=== PATIENT | female | born 1985 | race Caucasian/White ===

== ENCOUNTER 2016-05-04 05:22 | Emergency (ER) | payer OTHER ==
[~2016-05-04] VITALS: Ht 165.1 cm; Wt 101.2 kg
[~2016-05-04 05:22] MED LIST: ALPRAZOLAM1 M1; AMBIEN5 MG PO; BACTRIM; CELEXA; MOTRIN800 MG PO; PROMETHAZINE D118 M1 PO; PROZAC10 M1 PO; RISPERDAL0.25 MG PO; RISPERIDONE3 M1; ULTRAM50 MG PO; VENLAFAXINE H37.5 M3 PO; VENLAFAXINE HY150 MG; WELLBUTRIN; XANAX1 MG PO; ZOLPIDEM TARTRA10 M1
[2016-05-04 05:27] VITALS: BP 120/79
--- NOTE | 2016-05-04 05:30 | NUR ---
Patient taken to bed 03.
--- NOTE | 2016-05-04 05:31 | NUR ---
31/F BIB FAMILY C/O LIP PAIN x 4DAYS AGO. PT STATES NO INJURY OR TRAUMA. DENIES N/V/D; SKIN IS PINK/WARM/DRY; AAOX4 WITH EVEN AND STEADY GAIT; LUNGS CLEAR BL; HR EVEN AND REGULAR; PT DENIES ANY FEVER, CP, SOB, OR COUGH AT THIS TIME; PATIENT STATES PAIN OF 7/10 AT THIS TIME; VSS; PATIENT POSITIONED FOR COMFORT; HOB ELEVATED; BEDRAILS UP X2; BED DOWN. ER MD MADE AWARE OF PT STATUS.
--- NOTE | 2016-05-04 05:33 | NUR ---
Dr. Betancourt evaluating patient at bedside.
[2016-05-04 05:41] VITALS: BP 120/79
--- NOTE | 2016-05-04 05:41 | NUR ---
Patient discharged with v/s stable. Written and verbal after care instructions given and explained. Patient alert, oriented and verbalized understanding of instructions. Ambulatory with to car. All questions addressed prior to discharge. ID band removed. Patient advised to follow up with PMD. Rx ACYCLOVIR of given. Patient educated on indication of medication including possible reaction and side effects. Opportunity to ask questions provided and answered.
== END 2016-05-04 05:41 | disposition home or self-care (01) ==
LOC: MED 05:22
DX: B00.1 Herpesviral vesicular dermatitis (principal); F41.0 Panic disorder [episodic paroxysmal anxiety]

== ENCOUNTER 2016-06-19 23:01 | Emergency (ER) | payer OTHER ==
[~2016-06-19] VITALS: Ht 165.1 cm; Wt 104.8 kg
[2016-06-19 23:03] VITALS: BP 110/90
--- NOTE | 2016-06-20 00:16 | NUR ---
AMBULATED TO ER BED 4
--- NOTE | 2016-06-20 00:25 | NUR ---
31Y F PRESENT TO ER C/O OF HEADACHE MOSTLY TO LEFT TEMPORAL AREA AND RADIATING TO BACK OF THE HEAD WITH NAUSEA AND VOMITTING. NO DISTRESS NOTED.
[2016-06-20] MEDS ORDERED: LORazepam 2 MG/ML VIAL IM/IVP ONE (00:30)
[2016-06-20] MEDS ORDERED: ONDANSETRON 4 MG ODT PO ONE (00:30)
[2016-06-20] MEDS ORDERED: fentaNYL 0.05 MG/ML VIAL IM ONE (00:30)
[2016-06-20] MEDS ORDERED: HYDROmorphone 1 MG/ML AMP IM ONE (01:35)
[2016-06-20 02:30] VITALS: BP 110/90
--- NOTE | 2016-06-20 02:30 | NUR ---
Patient discharged with v/s stable. Written and verbal after care instructions given and explained. Patient alert, oriented and verbalized understanding of instructions. Ambulatory with steady gait. All questions addressed prior to discharge. ID band removed. Patient advised to follow up with PMD. Rx of NORCO AND ZOFRAN given. Patient educated on indication of medication including possible reaction and side effects. Opportunity to ask questions provided and answered.
== END 2016-06-20 02:30 | disposition home or self-care (01) ==
LOC: MED 23:01
DX: R51 Headache (principal); R11.2 Nausea with vomiting, unspecified; F41.9 Anxiety disorder, unspecified; F32.9 Major depressive disorder, single episode, unspecified
CPT/HCPCS: 70450; 81025; 96372; 99284; J1170; J2060; J3010; S0119

== ENCOUNTER 2016-06-20 16:33 | Emergency (ER) | payer OTHER ==
[~2016-06-20] VITALS: Ht 165.1 cm; Wt 104.8 kg
[2016-06-20 16:35] VITALS: BP 136/73
--- NOTE | 2016-06-20 16:49 | NUR ---
PT TO BED 3 AT THIS TIME.
--- NOTE | 2016-06-20 16:50 | NUR ---
31/F PRESENTS TO ER W/C/O HEADACHE AND VOMITING SINCE LAST NOC. PT STATES SHE WAS SEEN IN ER LAST NOC FOR SAME S/SX AND D/C W/ZOFRAN AND NORCO BUT THAT THE HEADACHE HAS GOTTEN WORSE. 12/31 ACHING NON-RADIATING. AAOx4, BREATHING EVEN AND UNLABORED. VSS. ERMD NOTIFIED OF PATIENT STATUS.
--- NOTE | 2016-06-20 16:55 | NUR ---
Patient being evaluated by physician at bedside.
[2016-06-20] MEDS ORDERED: PROCHLORPERAZINE 10 MG/2 ML VIAL IM ONE (17:00)
[2016-06-20] MEDS ORDERED: KETOROLAC 60 MG/2 ML VIAL IM ONE (17:00)
--- NOTE | 2016-06-20 17:31 | NUR ---
Pt report given to ASA SWEET. Transfer of care to ER BED #7 at this time.
[2016-06-20] MEDS ORDERED: ACETAMINOPHEN EXTRA STRENGTH 500 MG TAB PO ONE (17:40)
[2016-06-20 18:16] VITALS: BP 136/73
--- NOTE | 2016-06-20 18:17 | NUR ---
Patient discharged with v/s stable. Written and verbal after care instructions given and explained. Patient alert, oriented and verbalized understanding of instructions. Ambulatory with steady gait. All questions addressed prior to discharge. ID band removed. Patient advised to follow up with PMD. Rx of COMPAZINE, IMITREX, FIORICET, given. Patient educated on indication of medication including possible reaction and side effects. Opportunity to ask questions provided and answered.
== END 2016-06-20 18:17 | disposition home or self-care (01) ==
LOC: MED 16:33
DX: G43.909 Migraine, unspecified, not intractable, without status migrainosus (principal); R03.0 Elevated blood-pressure reading, without diagnosis of hypertension
CPT/HCPCS: 96372; 99284; J0780; J1885

== ENCOUNTER 2016-08-05 06:56 | Emergency (ER) | payer OTHER ==
[~2016-08-05] VITALS: Ht 170.2 cm; Wt 104.8 kg
[~2016-08-05 06:56] MED LIST changes: -ALPRAZOLAM1 M1; -AMBIEN5 MG PO; -BACTRIM; -CELEXA; +IBUP-974 PO; -MOTRIN800 MG PO; -PROMETHAZINE D118 M1 PO; -PROZAC10 M1 PO; -RISPERDAL0.25 MG PO; -RISPERIDONE3 M1; +TRAM50TA94 PO; -ULTRAM50 MG PO; -VENLAFAXINE H37.5 M3 PO; -VENLAFAXINE HY150 MG; -WELLBUTRIN; -XANAX1 MG PO; +ZOLP5TAB1 PO; -ZOLPIDEM TARTRA10 M1
[2016-08-05 06:59] VITALS: BP 106/66
--- NOTE | 2016-08-05 07:10 | NUR ---
PT TAKEN TO BED 5
--- NOTE | 2016-08-05 07:10 | NUR ---
31/F BIB SELF C/O MID CHEST PAIN RADIATING TO L RIBS X 3 DAYS., PT STATES PT FEELS NUMBNESS LEFT ARM AT THIS TIME. DENIES N/V/D; SKIN IS PINK/WARM/DRY; AAOX4 WITH EVEN AND STEADY GAIT; LUNGS CLEAR BL; HR EVEN AND REGULAR; PT DENIES ANY FEVER, SOB, OR COUGH AT THIS TIME; PATIENT STATES PAIN OF 10/10 AT THIS TIME; VSS; PATIENT POSITIONED FOR COMFORT; HOB ELEVATED; BEDRAILS UP X2; BED DOWN. ER MD MADE AWARE OF PT STATUS.
[2016-08-05] MEDS ORDERED: KETOROLAC 60 MG/2 ML VIAL IM ONE (07:25)
[2016-08-05] MEDS ORDERED: ALUMINUM HYD/MAG/SIMETHICONE 30 ML UDC ONE (07:30)
[2016-08-05] MEDS ORDERED: LIDOCAINE VISCOUS 2% 20 ML UDC ONE (07:30)
[2016-08-05] MEDS: ALUMINUM HYD/MAG/SIMETHICONE 30 ML, DICYCLOMINE HCL LIQUID 20 MG, LIDOCAINE VISCOUS 2% ... PO ONE ×3 (07:30)
[2016-08-05] MEDS ORDERED: DICYCLOMINE HCL LIQUID 10 MG/5 ML UDC ONE (07:32)
--- NOTE | 2016-08-05 07:42 | NUR ---
PT TAKEN TO X RAY VIA W/C ACCOMPANIED BY HIDE INSPECTOR AND SORTER
--- NOTE | 2016-08-05 07:52 | NUR ---
PT STATES PT TOOK IBUFROFEN PT FEELS GI UPSET. NOTIFIED MD. MERCADO AWARE
[2016-08-05] MEDS: ONDANSETRON 4 MG ODT PO ONE (08:08)
[2016-08-05] MEDS: traMADol 50 MG TAB PO ONE (08:08)
[2016-08-05] MEDS: ACETAMINOPHEN EXTRA STRENGTH 500 MG TAB PO ONE (08:08)
[2016-08-05 08:48] VITALS: BP 106/66
--- NOTE | 2016-08-05 08:48 | NUR ---
Patient discharged with v/s stable. Written and verbal after care instructions given and explained. Patient alert, oriented and verbalized understanding of instructions. Ambulatory with steady gait. All questions addressed prior to discharge. ID band removed. Patient advised to follow up with PMD. Rx of ULTRAM & FLEXERIL given. Patient educated on indication of medication including possible reaction and side effects. Opportunity to ask questions provided and answered.
== END 2016-08-05 08:48 | disposition home or self-care (01) ==
LOC: MED 06:56
DX: M94.0 Chondrocostal junction syndrome [Tietze] (principal); R20.0 Anesthesia of skin; Z90.49 Acquired absence of other specified parts of digestive tract
CPT/HCPCS: 36415; 71020; 85379; 99285; J1885; S0119

== ENCOUNTER 2018-09-15 11:23 | Emergency (ER) | payer OTHER ==
[~2018-09-15] VITALS: Ht 165.1 cm; Wt 106.6 kg
[~2018-09-15 11:23] MED LIST changes: +TRAM50TA1 PO; -TRAM50TA94 PO
[2018-09-15 11:35] VITALS: BP 115/71
--- NOTE | 2018-09-15 11:42 | NUR ---
33 Y FEMALE WITH DAUGHTER C/O PRESSURE STERNAL CHEST PAIN X3 DAYS. RADIATING TO LT LOWER BACK AT REST. DENIES N/V, SOB, BLURRY VISION. ALSO STATED TEETH PAIN AND LEFT FOOT PAIN. LT PINKY TOE NOTED RED. PT STATES SHE CANT RECALL HOW IT STARTED. PT ADDS THAT SHE HAD A ROOT CANAL PERFORMED ON THE WRONG TOOTH AND NOW HAS PAIN. REQUESTING PAIN MEDICATIONS. VSS AT THIS TIME. PT AA0X4. BED IS DOWN, LOCKED, BED RAIL X 1, ERMD TO SEE PT. PMH- DENIES
--- NOTE | 2018-09-15 11:49 | NUR ---
DR ANTONIO AT BEDSIDE
[2018-09-15] MEDS ORDERED: MORPHINE SULFATE 4 MG/ML SYR IM ONE (11:55)
[2018-09-15] MEDS ORDERED: KETOROLAC 60 MG/2 ML VIAL IM ONE (11:55)
--- NOTE | 2018-09-15 12:03 | NUR ---
Hung velasquez in [facility] - 09/15/18 at 1216 by [email or web address] XRAY AT BEDSIDE
--- NOTE | 2018-09-15 12:17 | NUR ---
XRAY AT BEDSIDE
--- NOTE | 2018-09-15 12:57 | NUR ---
PT REFUSED SPLINT AND CRUTCHES AT THIS TIME
[2018-09-15 13:00] VITALS: BP 111/66
--- NOTE | 2018-09-15 13:00 | NUR ---
Patient discharged with v/s stable. Written and verbal after care instructions given and explained. Patient alert, oriented and verbalized understanding of instructions. Ambulatory with steady gait. All questions addressed prior to discharge. ID band removed. Patient advised to follow up with PMD. Rx of CLINDAMYCIN HYDROCHLORIDE, TRAMADOL given. Patient educated on indication of medication including possible reaction and side effects. Opportunity to ask questions provided and answered. PT INSTRUCTED TO FOLLOW UP WITH KAL ROJAS DPM.
== END 2018-09-15 13:00 | disposition home or self-care (01) ==
LOC: MED 11:23
DX: S90.32XA Contusion of left foot, initial encounter (principal); K02.9 Dental caries, unspecified; R07.89 Other chest pain; Z79.891 Long term (current) use of opiate analgesic; Z79.1 Long term (current) use of non-steroidal anti-inflammatories (NSAID); Z79.899 Other long term (current) drug therapy; W45.0XXA Nail entering through skin, initial encounter; Y93.89 Activity, other specified; Y92.89 Other specified places as the place of occurrence of the external cause; Y99.8 Other external cause status
CPT/HCPCS: 73660; 81025; 96372; 99283; J1885; J2270; Q0092

== ENCOUNTER 2018-09-22 12:37 | Observation (INO) | payer OTHER ==
[~2018-09-22] VITALS: Ht 165.1 cm; Wt 106.6 kg
--- NOTE | 2018-09-22 12:41 | NUR ---
PATIENT AMBULATED TO BED 2.
[2018-09-22 12:48] VITALS: BP 124/71
--- NOTE | 2018-09-22 12:48 | NUR ---
BIB SELF. AAO X4 C/O CHEST PAIN TO LT CHEST X TODAY AT 4 AM, L LOWER BACK RADIATING TO HELENA LOWER LEGS PAIN 10/. FULL CLEAR SPEECH, PERRLA BRISK 3 MM. NO FACIAL ASSYMETRY. EQUAL HELENA STRENGTH TO UPPER AND LOWER EXTREMITIES. STEADY GAIT. PT DENIES SOB, N/V, DIZZINESS. PT PLACED ON FULL LEATHER FLESHER. ER TO EVALUATE PT.
--- NOTE | 2018-09-22 12:59 | NUR ---
DR ANTONIO AT BEDSIDE FOR PT EVALUATION
--- NOTE | 2018-09-22 13:30 | NUR ---
PT AAO X4, FULL CLEAR SPEECH. NO SIGNS AND SYMPTOMS OF DISTRESS NOTED. VSS. SAFETY ENSURED. ON HOME RESTORATION SERVICE CLEANER.
[2018-09-22] MEDS ORDERED: methylPREDNISolone SS 125 MG/2 ML VIAL IVP ONE (13:35)
[2018-09-22] MEDS ORDERED: MORPHINE SULFATE 4 MG/ML SYR IVP ONE ×2 (13:35→15:05)
[2018-09-22] MEDS ORDERED: diphenhydrAMINE 50 MG/ML VIAL IVP ONE (13:35)
[2018-09-22 13:45] LABS: BASOPHILS # (AUTO) 0.1 K/uL (0.00-0.22); BASOPHILS % (AUTO) 0.7 % (0.0-2.0); EOSINOPHILS # (AUTO) 0.1 K/uL (0-0.4); EOSINOPHILS % (AUTO) 1.2 % (0.0-4.0); HEMATOCRIT 38.3 % (36-48); LYMPHOCYTES # (AUTO) 2.9 K/uL (2.5-16.5); LYMPHOCYTES % (AUTO) 25.8 % (20.5-51.1); MEAN CORPUSCULAR HEMOGLOBIN 30 pg (27-31); MEAN CORPUSCULAR HGB CONC 34 g/dL (33-37); MEAN CORPUSCULAR VOLUME 87.6 fL (80-94); MONOCYTES # (AUTO) 0.5 K/uL (0.8-1.0); MONOCYTES % (AUTO) 4.8 % (1.7-9.3); NEUTROPHILS # (AUTO) 7.5 K/uL (1.8-7.7); NEUTROPHILS % (AUTO) 67.5 % (42.2-75.2); PLATELET COUNT (AUTO) 376 K/uL (140-450); RED BLOOD CELL COUNT(AUTO) 4.38 MIL/uL (4.20-5.40); RED CELL DISTRIBUTION WIDTH 14.5 % (11.6-13.7); WHITE BLOOD COUNT (AUTO) 11.1 K/uL (4.8-10.8)
[2018-09-22 13:52] LABS: D-DIMER < 100 ng/ml (0-400)
[2018-09-22 14:07] LABS: APPEARANCE,URINE CLOUDY (CLEAR); BILIRUBIN,URINE NEGATIVE (NEGATIVE); BLOOD, URINE NEGATIVE (NEGATIVE); COLOR,URINE YELLOW (YELLOW); LEUKOCYTE ESTERASE ,URINE NEGATIVE (NEGATIVE); NITRITE, URINE NEGATIVE (NEGATIVE); PH,URINE 7.5 (5.0-9.0); UGLUCOSE NEGATIVE (NEGATIVE)
--- NOTE | 2018-09-22 14:10 | NUR ---
PT AAO X4. FULL CLEAR SPEECH. ACTING APPROPRIATELY. ABLE TO VERBALIZE NEEDS. ON FULL RN MILITARY. VSS. WILL CONTINUE TO MONITOR.
[2018-09-22 14:16] LABS: ANION GAP 11.2 (8-16); CARBON DIOXIDE 26.6 mmol/L (21-32); CREATININE 0.7 mg/dL (0.6-1.3); POTASSIUM 3.8 mmol/L (3.5-5.1)
[2018-09-22 14:22] LABS: ALBUMIN 3.3 g/dL (3.4-5.0); TOTAL BILIRUBIN 0.3 mg/dL (0.0-1.0)
[2018-09-22 14:24] LABS: C-REACTIVE PROTEIN QUANT 0.7 mg/dL (0.0-0.9)
[2018-09-22 14:24] LABS: BARBITURATE, URINE NEGATIVE ng/ml (NEG <=200); BENZODIAZEPINE, URINE NEGATIVE ng/mL (NEG <=200); CANNABINOID, URINE POSITIVE ng/mL (NEG <=50); COCAINE, URINE NEGATIVE ng/mL (NEG <=300); OPIATE, URINE NEGATIVE ng/mL (NEG <=2000); PHENCYCLIDINE SCREEN,URINE NEGATIVE ng/mL (NEG <=25)
[2018-09-22 14:31] LABS: RBC,URINE 0-5 /HPF (0-5); WBC,URINE 0-5 /HPF (0-5)
[2018-09-22 14:46] LABS: MAGNESIUM 1.9 mg/dL (1.8-2.4)
[2018-09-22] MEDS ORDERED: NITROGLYCERIN 2% 1 GM PKT TP ONE (15:05)
[2018-09-22] MEDS ORDERED: ASPIRIN 325 MG TAB PO ONE (15:05)
[2018-09-22] MEDS ORDERED: FAMOTIDINE 20 MG TAB PO ONE (15:05)
--- NOTE | 2018-09-22 15:10 | NUR ---
PT EYES CLOSED. EASILY AROUSABLE BY NAME. VSS. AAO X4. FULL CLEAR SPEECH. WILL CONTINUE TO MONITOR.
[2018-09-22] MEDS ORDERED: MORPHINE SULFATE 4 MG/ML SYR IVP PRN (15:15)
[2018-09-22] MEDS ORDERED: LORazepam 2 MG/ML VIAL IVP PRN (15:15)
[2018-09-22] MEDS ORDERED: MORPHINE SULFATE 2 MG/ML SYR IVP PRN (15:15)
[2018-09-22] MEDS ORDERED: ALBUTEROL 0.083% 2.5 MG/3 ML NEBU INH PRN (15:15)
--- NOTE | 2018-09-22 16:00 | NUR ---
PT AAO X4. FULL CLEAR SPEECH. CALM. ON FULL DIE SINKER. WILL CONTINUE TO MONITOR.
[2018-09-22 16:15] VITALS: BP 107/60
--- NOTE | 2018-09-22 16:15 | NUR ---
PATIENT ARRIVED UNIT VIA [facility] ACCOMPANIED BY ASPHALT ENGINEER. PATIENT IS AAOX4. DENIED PAIN AND SOB AT THIS TIME. RESPIRATION EVEN AND UNLABORED ON RA. NO SIGNS OF DISTRESS NOTED. IV ON LAC 20G, CLEAN AND INTACT, SL. SKIN CLEAN AND DRY. PATIENT IS ABLE TO AMBULATE WITH STEADY GAIT. TRANSFERRED PATIENT FROM [facility] TO BED AND POSITIONED PATIENT COMFORTABLY. ORIENTED PATIENT TO THE ROOM, AND HOW TO USE THE CALL LIGHT, TV, BED REMOTE, BATHROOM AND TELEPHONE. PATIENT VERBALIZED OK. VITAL SIGNS TAKEN AND MRSA NARES COLLECTED. PATIENT VERBALIZED UNDERSTANDING. TELE MONITOR ATTACHED. BED IN LOW POSITION AND CALL LIGHT WITHIN REACH. INSTRUCTED PATIENT TO USE THE CALL LIGHT FOR ANY ASSISTANCE AND PATIENT WAS AWARE.
--- NOTE | 2018-09-22 16:15 | NUR ---
Patient will be admitted to care of Dr Zee. Admited to Tele. Will go to room 105 B. Belongings list completed. Report to ASA Nieves.
--- NOTE | 2018-09-22 17:29 | NUR ---
PATIENT COMPLAINED 10/10 L CHEST PAIN. SHE SAID SHE FEELS HEAVINESS AND SHARP PAIN AROUND HER L BREAST AREA. ADMINISTERED PRN PAIN MED MORPHINE, PATIENT TOLERATED WELL. PATIENT IS RESTING ON BED AT THIS TIME. SAFETY MEASURES IN PLACE. TELE MONITOR ATTACHED. BED IN LOW POSITION AND CALL LIGHT WITHIN REACH. INSTRUCTED PATIENT TO USE THE CALL LIGHT FOR ANY ASSISTANCE AND PATIENT WAS AWARE.
--- NOTE | 2018-09-22 17:40 | NUR ---
PATIENT REQUESTED FOR SOME MORE ZUCCHINI. [facility], AND PER [facility], THEY DO HAVE SOME EXTRA LEFT AND SHE WILL BRING SOME TO THE PATIENT. INFORMED PATIENT THAT [facility] WILL BRING SOME MORE ZUCCHINI HER REQUEST. PATIENT WAS AWARE.
--- NOTE | 2018-09-22 18:41 | NUR ---
PATIENT IS RESTING ON BED AND TALKING TO VISITOR JUAQUIN AT BEDSIDE. NO SIGNS OF DISTRESS NOTED. SAFETY MEASURES IN PLACE. TELE MONITOR ATTACHED. BED IN LOW POSITION AND CALL LIGHT WITHIN REACH. INSTRUCTED PATIENT TO USE THE CALL LIGHT FOR ANY ASSISTANCE AND PATIENT WAS AWARE.
--- NOTE | 2018-09-22 19:16 | NUR ---
ENDORSED PATIENT AT BEDSIDE TO CARTON REPAIRER NURSE FOR CONTINUITY OF CARE. PATIENT IS AWAKE AND TALKING TO VISITOR JUAQUIN AT BEDSIDE. NO SIGNS OF DISTRESS NOTED. TELE MONITOR IN PLACE. SAFETY MEASURES IN PLACE. BED IN LOW POSITION AND CALL LIGHT WITHIN REACH.
--- NOTE | 2018-09-22 19:20 | NUR ---
RECEIVED BEDSIDE REPORT FROM EVERETT CHAVEZ. PT A/O X4 ABLE TO MAKE NEEDS KNOWN. DISCUSSED PLAN OF CARE. VERBALIZED UNDERSTANDING. STANDARD PRECAUTIONS. ROOM AIR. NO SIGNS OF RESPIRATORY DISTRESS. SKIN IS INTACT. LEFT AC 22G SALINE LOCK. PATENT AND INTACT. PT OBSERVATION. TELE MONITOR. AMBULATORY. STEADY GAIT. BED IN LOW POSITION. CALL LIGHT WITHIN REACH. WILL CONTINUE TO MONITOR.
[2018-09-22 20:00] VITALS: BP 105/53
--- NOTE | 2018-09-22 20:00 | NUR ---
BOYFRIEND AT BEDSIDE. NO SIGNS OF RESP DISTRESS. NO COMPLAINTS AT THIS TIME. WILL CONTINUE TO MONITOR.
--- NOTE | 2018-09-22 20:20 | NUR ---
PT REQUESTS FOR AMBIEN TO HELP HER SLEEP, SHE STATES SHE TAKES IT AT HOME FOR SLEEP. REQUESTS CHANGE IN PAIN MEDICATION DUE TO MORPHINE GIVING HER A HEADACHE. REQUESTS SOMETHING STRONGER PAIN MED. PAGED DR LANGE IN REGARDS TO PT REQUESTS.
--- NOTE | 2018-09-22 21:09 | NUR ---
CALL BACK FROM DR ALNGE. NAZARIO GUNN ORDER AMBIEN 5MG PO QHS PRN FOR INSOMNIA. DISCONTINUE BOTH CURRENT MORPHINE PRN. ADD DILADID 1MG IVP Q4H PRN FOR SEVERE PAIN. WILL PUT IN ORDER.
[2018-09-22] MEDS ORDERED: ZOLPIDEM 5 MG TAB PO PRN (21:15)
[2018-09-22] MEDS: ENOXAPARIN 100 MG/ML SYR SUBQ SCH (21:22)
[2018-09-22] MEDS: HYDROmorphone 1 MG/ML AMP IVP PRN (21:43)
--- NOTE | 2018-09-22 21:47 | NUR ---
PT STATES SHE IS IN SEVER PAIN 12/31. REQUESTS DILAUDID PRN MED. GAVE DILAUDID. EDUCATION ON SIDE EFFECTS. VERBALIZED UNDERSTANDING. TOLERATED WELL. WILL REASSESS PAIN. WILL CONTINUE TO MONITOR.
--- NOTE | 2018-09-22 23:34 | NUR ---
PT IS AWAKE RESTING IN BED WATCHING TV. NO SIGNS OF DISTRESS NOTED. NO PAIN AT THIS TIME. CALL LIGHT WITHIN REACH. WILL CONTINUE TO MONITOR.
[2018-09-23] VITALS: BP 96/48
[2018-09-23 01:39] VITALS: BP 98/55
--- NOTE | 2018-09-23 01:39 | NUR ---
PT REQUESTED PAIN MED DILAUDID PRN. VITALS TAKEN. BLOOD PRESSURE 98/55. PULSE 105. DID NOT MEDICATE WITH DILAUDID PRN DUE TO DECREASED BP. WILL REASSESS VITALS.
--- NOTE | 2018-09-23 01:40 | NUR ---
PT STATES SHE CAN TOLERATE PAIN. WILL CONTINUE TO MONITOR.
--- NOTE | 2018-09-23 02:07 | NUR ---
VITALS RETAKEN. BP 93/57. PULSE 85. O2 SAT 96. RESP 18. PT REQUESTS PAIN MEDS DUE TO NO LONGER BEING ABLE TO TOLERATE. WILL MEDICATE WITH DILAUDID 1MG PRN. WILL CONTINUE TO MONITOR. Addendum: 09/23/18 at 0211 by Nimisha Koehler RN CORRECTION BP 98/57. MAP OF 71.
[2018-09-23 02:09] VITALS: BP 98/57
[2018-09-23] MEDS: HYDROmorphone 1 MG/ML AMP IVP PRN ×3 (02:20→10:15)
[2018-09-23 04:00] VITALS: BP 90/60
--- NOTE | 2018-09-23 04:00 | NUR ---
VITALS ASSESSED. BP 90/60. O2 96%. PULSE 88. RR 18. NO SIGN OF DISTRESS. NO SOB. NO CHEST PAIN. NO COMPLAINTS AT THIS TIME. WILL CONTINUE TO MONITOR.
--- NOTE | 2018-09-23 05:44 | NUR ---
PT IS SLEEPING IN BED. EASILY AROUSABLE. NO SIGNS OF RESP DISTRESS. EVEN CHEST RISE. NO CHEST PAIN. NO COMPLAINTS AT THIS TIME. WILL CONTINUE TO MONITOR.
--- NOTE | 2018-09-23 06:24 | NUR ---
WILL ENDORSE PT TO DAYSHIFT RN. PT IN STABLE CONDITION. BED IN LOW POSITION. CALL LIGHT WITHIN REACH. WILL CONTINUE TO MONITOR.
[2018-09-23 07:00] LABS: ALBUMIN 3.1 g/dL (3.4-5.0); ANION GAP 11.8 (8-16); CARBON DIOXIDE 26.1 mmol/L (21-32); CREATININE 0.6 mg/dL (0.6-1.3); MAGNESIUM 1.9 mg/dL (1.8-2.4); POTASSIUM 3.9 mmol/L (3.5-5.1); TOTAL BILIRUBIN 0.4 mg/dL (0.0-1.0)
[2018-09-23 07:04] LABS: BASOPHILS % (AUTO) 0.1 % (0.0-2.0); HEMATOCRIT 39.3 % (36-48); HEMOGLOBIN 13.2 g/dL (12.0-16.0); LYMPHOCYTES # (AUTO) 2.3 K/uL (2.5-16.5); MEAN CORPUSCULAR HEMOGLOBIN 29 pg (27-31); MEAN CORPUSCULAR HGB CONC 34 g/dL (33-37); MEAN CORPUSCULAR VOLUME 87.2 fL (80-94); MONOCYTES # (AUTO) 0.6 K/uL (0.8-1.0); MONOCYTES % (AUTO) 3.1 % (1.7-9.3); NEUTROPHILS # (AUTO) 16.3 K/uL (1.8-7.7); NEUTROPHILS % (AUTO) 84.8 % (42.2-75.2); PLATELET COUNT (AUTO) 390 K/uL (140-450); RED BLOOD CELL COUNT(AUTO) 4.51 MIL/uL (4.20-5.40); RED CELL DISTRIBUTION WIDTH 14.4 % (11.6-13.7); WHITE BLOOD COUNT (AUTO) 19.3 K/uL (4.8-10.8)
--- NOTE | 2018-09-23 07:30 | NUR ---
RECEIVED REPORT FROM SPEEDBOAT DRIVER RN. PT IN STABLE CONDITION. NO C/O PAIN OR DISCOMFORT AT THIS TIME. LUNGS CTAB, REGULAR RATE AND EFFORT. S1 AND S2 PRESENT, NO MURMURS. PT RESTING COMFORTABLY IN BED, ALL NEEDS MET AT THIS TIME. IV SITE PATENT AND ASYMPTOMATIC, ON SL. OBSERVATION PT. ALL SAFETY PRECAUTIONS IN PLACE, WILL CONTINUE TO MONITOR.
[2018-09-23 08:00] VITALS: BP 98/52
[2018-09-23] MEDS: ENOXAPARIN 100 MG/ML SYR SUBQ SCH (08:10)
--- NOTE | 2018-09-23 08:20 | NUR ---
SCHEDULED MEDICATIONS ADMINISTERED. K PAD APPLIED TO BACK PAIN AREA.
--- NOTE | 2018-09-23 09:09 | NUR ---
PATIENT HAS BEEN SCREENED AND CATEGORIZED MODERATE NUTRITION RISK. PATIENT WILL BE SEEN WITHIN 3-5 DAYS OF ADMISSION. 09/22/[address]
--- NOTE | 2018-09-23 09:27 | NUR ---
PT RESTING IN BED, STATES THAT K PAD IS WARM BUT NOT VERY EFFECTIVE. STILL WANTS PAIN MEDICATION WHEN DUE.
--- NOTE | 2018-09-23 10:26 | NUR ---
DR. THORPE AT BEDSIDE TO SEE PATIENT.
--- NOTE | 2018-09-23 11:15 | NUR ---
PER NABOR DOLL WORKING ON OUTPATIENT CARDIOLOGY APPOINTMENT AND PCP APPOINTMENT. WILL KEEP PATIENT HERE UNTIL APPOINTMENTS HAVE BEEN MADE AND GIVEN TO PATIENT.
--- NOTE | 2018-09-23 11:22 | NUR ---
NEW ORDER FOR OUTPATIENT REFERRAL TO [facility], CALLED [facility] AND SPOKE WITH DARBY [phone], FAXED ORDER AND CLINICALS [phone], PER DARBY SHE WILL CALL BE BACK.
[2018-09-23 12:00] VITALS: BP 102/57
--- NOTE | 2018-09-23 12:00 | NUR ---
CALLED OFFICE OF DR KELLY SPOKE WITH ALEX, FOLLOW-UP APPOINTMENT MADE ON 09/29/18 AT 1030 AM AT [address] [place] [address]. COPY OF APPOINTMENT GIVEN TO PATIENT, VERBALIZED UNDERSTANDING.
--- NOTE | 2018-09-23 12:33 | NUR ---
CALLED [facility] TO FOLLOW UP SPOKE WITH DARBY, FOR OUTPATIENT MANAGER COUNTRY. SHE SAID SHE WILL SEE DR CAYETANO NUNEZ MANAGER COUNTRY FROM [facility].
--- NOTE | 2018-09-23 13:00 | NUR ---
SPOKE WITH PATIENT AT BEDSIDE WITH ASA CHANDRA, PT REFUSED TO WAIT FOR ASSISTANT COOK FOLLOW-UP APPOINTMENT, PT WANTED TO GO HOME SOON POSSIBLE. PROVIDED PT WITH ASSISTANT COOK INFORMATION , DR CAYETANO BARRON [phone]. TOOK PATIENT CELL PHONE NUMBER [phone].
--- NOTE | 2018-09-23 13:05 | NUR ---
NABOR IVORY AND I SPOKE WITH PATIENT REGARDING OUTPATIENT APPTS. NABOR IVORY GAVE PT APPT FOR PCP. CARDIOLOGY OFFICE IS CLOSED FOR LUNCH UNTIL 2PM AND PATIENT DOES NOT WANT TO WAIT. PT STATES SHE WILL CALL [facility] OPERATOR OFFICE- INFORMATION PROVIDED TO PATIENT.
[2018-09-23] MEDS ORDERED: ACET-5629 PO (13:17)
--- NOTE | 2018-09-23 13:40 | NUR ---
DISCHARGE PAPERWORK GIVEN TO PATIENT. NEW PRESCRIPTION/MEDICATION TEACHING AND MEDICATION RECONCILIATION TEACHING GIVEN TO PATIENT. PT VERBALIZED COMPLETE UNDERSTANDING. IV SITE REMOVED WITH MINIMAL BLOOD LOSS AND LUMEN COMPLETELY INTACT. ID BANDS REMOVED. ALL PERSONAL BELONGINGS ARE WITH PATIENT. PATIENT WILL BE PICKED UP BY [facility] AND GO HOME.
--- NOTE | 2018-09-23 15:30 | NUR ---
I RECEIVED A CALL FROM [facility] DARBY ,PROVIDED THE AUTH #[id number] FOR CANVAS CUTTER MACHINE , CALLED DR CAYETANO BARRON CANVAS CUTTER MACHINE [phone] AND APPOINTMENT FOR OCTOBER 05, 2018 AT 1100 AM THE ADDRESS [facility] [address] [place] [address] CALLED SHIVANI BARROS [phone] AND NOTIFIED HER THE APPOINTMENT. PT VERBALIZED UNDERSTANDING.
== END 2018-09-23 13:40 | disposition home or self-care (01) ==
LOC: MED 12:37 → MTU 15:17
PROVIDERS: ADMIT Internal Medicine Pulmonary Disease; ATTEND Internal Medicine Pulmonary Disease
DX: F41.9 Anxiety disorder, unspecified (principal); R07.2 Precordial pain; M54.5 Low back pain; G89.29 Other chronic pain; F41.0 Panic disorder [episodic paroxysmal anxiety]; F19.10 Other psychoactive substance abuse, uncomplicated; R74.8 Abnormal levels of other serum enzymes; E87.8 Other disorders of electrolyte and fluid balance, not elsewhere classified; E66.9 Obesity, unspecified; F12.90 Cannabis use, unspecified, uncomplicated
CPT/HCPCS: 36415; 71045; 80053; 80305; 81001; 81025; 83735; 83880; 84484; 85025; 85379; 85610; 85651; 86140; 87081; 93005; 96372; 96374; 96375; 96376; 99285; G0378; G0482; J1170; J1200; J1650; J2270; J2930; Q0092

== ENCOUNTER 2018-10-26 16:40 | Emergency (ER) | payer OTHER ==
[~2018-10-26] VITALS: Ht 165.1 cm; Wt 109.8 kg
[~2018-10-26 16:40] MED LIST changes: +ACET-5629 PO; -IBUP-974 PO
[2018-10-26 16:43] VITALS: BP 123/76
--- NOTE | 2018-10-26 16:54 | NUR ---
Patient ambulated to bed 6. RN evaluating patient at bedside.
--- NOTE | 2018-10-26 17:31 | NUR ---
33 Y/O FEMALE C/O CONSTANT LEFT ACUTE, SHARP CHEST PAIN 7/10 RADIATING TO BACK X 3 DAYS. C/O COCCYX PAIN. DENIES INJURY. AMBULATORY WITH STEADY GAIT. MED HX: C SECTION, GALL STONE REMOVAL
[2018-10-26] MEDS ORDERED: KETOROLAC 60 MG/2 ML VIAL IM ONE ×2 (18:00→18:11)
[2018-10-26] MEDS ORDERED: MORPHINE SULFATE 4 MG/ML SYR IVP ONE ×2 (18:30→19:50)
[2018-10-26] MEDS ORDERED: ASPIRIN 81 MG TAB.CHEW PO ONE (18:30)
[2018-10-26 18:44] LABS: BASOPHILS # (AUTO) 0.1 K/uL (0.00-0.22); BASOPHILS % (AUTO) 0.6 % (0.0-2.0); EOSINOPHILS # (AUTO) 0.2 K/uL (0-0.4); EOSINOPHILS % (AUTO) 1.6 % (0.0-4.0); HEMATOCRIT 37.8 % (36-48); HEMOGLOBIN 12.7 g/dL (12.0-16.0); LYMPHOCYTES # (AUTO) 2.6 K/uL (2.5-16.5); LYMPHOCYTES % (AUTO) 20.8 % (20.5-51.1); MEAN CORPUSCULAR HEMOGLOBIN 29 pg (27-31); MEAN CORPUSCULAR HGB CONC 34 g/dL (33-37); MEAN CORPUSCULAR VOLUME 86.9 fL (80-94); MONOCYTES # (AUTO) 0.7 K/uL (0.8-1.0); MONOCYTES % (AUTO) 5.4 % (1.7-9.3); NEUTROPHILS # (AUTO) 9.1 K/uL (1.8-7.7); NEUTROPHILS % (AUTO) 71.6 % (42.2-75.2); PLATELET COUNT (AUTO) 330 K/uL (140-450); RED BLOOD CELL COUNT(AUTO) 4.35 MIL/uL (4.20-5.40); RED CELL DISTRIBUTION WIDTH 13.9 % (11.6-13.7); WHITE BLOOD COUNT (AUTO) 12.8 K/uL (4.8-10.8)
--- NOTE | 2018-10-26 18:44 | NUR ---
medicated as written---will continue to observe for pain control full clear speech, no accessory muscle use noted at this time---no pedal edema noted
[2018-10-26 18:52] LABS: ANION GAP 10.4 (8-16); CARBON DIOXIDE 27.1 mmol/L (21-32); CREATININE 0.7 mg/dL (0.6-1.3); POTASSIUM 3.5 mmol/L (3.5-5.1)
[2018-10-26 18:58] LABS: TOTAL BILIRUBIN 0.4 mg/dL (0.0-1.0)
--- NOTE | 2018-10-26 19:40 | NUR ---
RECEIVED REPORT FROM MICHAEL BRAY. PT AWAKE, LAYING ON BED. C/O OF CHEST PAIN /. DOES NOT RADIATE. PT STATES MORPHINE DID NOT HELP. PT VSS. DR RAIN AWARE. WILL CONTINUE TO MONITOR.
--- NOTE | 2018-10-26 19:41 | NUR ---
Dr. Grady examining patient.
[2018-10-26 20:10] VITALS: BP 117/63
--- NOTE | 2018-10-26 20:10 | NUR ---
PT DISCHARGED WITH PAPERWORK. RX TRAMADOL, EDUCATED PT REGARDING MEDICATION AND SIDE EFFECTS. EDUCATED PT REGARDING DISCHARGE DIAGNOSIS. PT VERBALIZED UNDERSTANDING OF TEACHING. TOLD PT TO FOLLOW UP WITH PCP AND WHEN TO RETURN TO ED. PT VSS. ALL QUESTIONS ANSWERED.
== END 2018-10-26 20:10 | disposition home or self-care (01) ==
LOC: MED 16:40
DX: R07.89 Other chest pain (principal); Z79.899 Other long term (current) drug therapy
CPT/HCPCS: 36415; 71045; 80053; 81002; 81025; 84484; 85025; 93005; 96372; 96374; 96376; 99284; J1885; J2270; Q0092; 96365; 96366; 96375

== ENCOUNTER 2019-08-26 08:20 | Emergency (ER) | payer OTHER ==
[~2019-08-26] VITALS: Ht 165.1 cm; Wt 113.4 kg
[2019-08-26 08:23] VITALS: BP 110/59
--- NOTE | 2019-08-26 08:35 | NUR ---
PATIENT AMBULATED TO BED 7
[2019-08-26] MEDS ORDERED: DIAZEPAM 5 MG TAB PO ONE (08:45)
[2019-08-26] MEDS ORDERED: KETOROLAC 30 MG/ML VIAL IM ONE (08:45)
--- NOTE | 2019-08-26 08:46 | NUR ---
PT C/O IS LT SIDE CHEST PAIN. PT DESCRIBES PAIN CRUSHING AND SQUEEZING IN CHEST. PT STATES PAIN HAS BEEN ONGOING FOR 2 MONTHS. PT STATES PAIN COMES AND GOES. PAIN RADIATES FROM LT NECK TO THE LT LEG. PT STATES PAIN IS 10/10 WITH ACTIVITIY AND REST. VSS. A&OX4. RESTING IN BED R/R EVEN AND UNLABORED. NO PMHX NKA/NKDA LMP: 08/08/19
[2019-08-26 09:01] LABS: BASOPHILS # (AUTO) 0.1 K/uL (0.00-0.22); BASOPHILS % (AUTO) 0.6 % (0.0-2.0); EOSINOPHILS # (AUTO) 0.1 K/uL (0-0.4); EOSINOPHILS % (AUTO) 1.2 % (0.0-4.0); HEMATOCRIT 40.7 % (36-48); HEMOGLOBIN 13.7 g/dL (12.0-16.0); LYMPHOCYTES # (AUTO) 2.9 K/uL (2.5-16.5); LYMPHOCYTES % (AUTO) 27.2 % (20.5-51.1); MEAN CORPUSCULAR HEMOGLOBIN 30 pg (27-31); MEAN CORPUSCULAR HGB CONC 34 g/dL (33-37); MEAN CORPUSCULAR VOLUME 87.5 fL (80-94); MONOCYTES # (AUTO) 0.4 K/uL (0.8-1.0); MONOCYTES % (AUTO) 4.2 % (1.7-9.3); NEUTROPHILS % (AUTO) 66.8 % (42.2-75.2); PLATELET COUNT (AUTO) 408 K/uL (140-450); RED BLOOD CELL COUNT(AUTO) 4.66 MIL/uL (4.20-5.40); RED CELL DISTRIBUTION WIDTH 13.8 % (11.6-13.7); WHITE BLOOD COUNT (AUTO) 10.5 K/uL (4.8-10.8)
--- NOTE | 2019-08-26 09:02 | NUR ---
EMT AT BEDSIDE FOR EKG
[2019-08-26 09:05] LABS: APPEARANCE,URINE CLEAR (CLEAR); BILIRUBIN,URINE NEGATIVE (NEGATIVE); BLOOD, URINE NEGATIVE (NEGATIVE); COLOR,URINE YELLOW (YELLOW); LEUKOCYTE ESTERASE ,URINE NEGATIVE (NEGATIVE); NITRITE, URINE NEGATIVE (NEGATIVE); PH,URINE 5.5 (5.0-9.0); UGLUCOSE NEGATIVE (NEGATIVE)
[2019-08-26 09:14] LABS: ALBUMIN 3.7 g/dL (3.4-5.0); CARBON DIOXIDE 25.2 mmol/L (21-32); CREATININE 0.9 mg/dL (0.6-1.3); POTASSIUM 4.2 mmol/L (3.5-5.1); TOTAL BILIRUBIN 0.5 mg/dL (0.0-1.0)
--- NOTE | 2019-08-26 09:28 | NUR ---
PT IS RESTING AT BEDSIDE. PT STATES SHE IS STILL IN PAIN AFTER PAIN MEDS WERE GIVEN. R/R EVEN AND UNLABORED. VSS.
[2019-08-26] MEDS ORDERED: MORPHINE SULFATE 4 MG/ML SYR IM ONE (10:00)
[2019-08-26 10:26] VITALS: BP 110/59
--- NOTE | 2019-08-26 10:27 | NUR ---
Patient discharged with v/s stable. Written and verbal after care instructions given and explained. Patient alert, oriented and verbalized understanding of instructions. Ambulatory with steady gait. All questions addressed prior to discharge. ID band removed. Patient advised to follow up with PMD. Rx of IBUPROFEN 600MG, VALIUM 5MG given. Patient educated on indication of medication including possible reaction and side effects. Opportunity to ask questions provided and answered.
== END 2019-08-26 10:27 | disposition home or self-care (01) ==
LOC: MED 08:20
DX: G89.29 Other chronic pain (principal); M54.5 Low back pain; R07.89 Other chest pain; Z79.899 Other long term (current) drug therapy
CPT/HCPCS: 36415; 71045; 80053; 81003; 81025; 82550; 85025; 93005; 96372; 99285; J1885; J2270; Q0092

== ENCOUNTER 2019-09-16 10:50 | Emergency (ER) | payer OTHER ==
[~2019-09-16] VITALS: Ht 165.1 cm; Wt 113.4 kg
[2019-09-16 11:04] VITALS: BP 114/75
--- NOTE | 2019-09-16 11:10 | NUR ---
PT W/C ASSISTED TO BED 6.
--- NOTE | 2019-09-16 11:20 | NUR ---
dr. tinoco at bedside.
--- NOTE | 2019-09-16 11:22 | NUR ---
34 y/f presents to ed for cellulitis to rvg s/p vitamin injection for weightloss. r hip c erythema, and induration. pt denies n/v/d/ fever or chills. pt also reports pain to lvg/ hip. pt also reports spine pain x 4 days denies injury. pt reports 10/10 pain unrelieved by naprosyn and motrin. pt a &o x 4. rr even and unlabored. pulses 2 +.
[2019-09-16] MEDS ORDERED: KETOROLAC 30 MG/ML VIAL IM ONE (11:25)
[2019-09-16] MEDS ORDERED: MORPHINE SULFATE 4 MG/ML SYR IM ONE (11:25)
--- NOTE | 2019-09-16 12:05 | NUR ---
pt taken to xr via wheelchair.
[2019-09-16 12:41] VITALS: BP 114/75
--- NOTE | 2019-09-16 12:41 | NUR ---
Patient discharged with v/s stable. Written and verbal after care instructions given and explained. Patient alert, oriented and verbalized understanding of instructions. Ambulatory with steady gait. All questions addressed prior to discharge. ID band removed. Patient advised to follow up with PMD. Rx of bactrim, keflex, and norco given. Patient educated on indication of medication including possible reaction and side effects. Opportunity to ask questions provided and answered. pt instructed not to drie while taking norco.
== END 2019-09-16 12:41 | disposition home or self-care (01) ==
LOC: MED 10:50
DX: L02.31 Cutaneous abscess of buttock (principal); M54.5 Low back pain; Z79.899 Other long term (current) drug therapy; Z98.890 Other specified postprocedural states
CPT/HCPCS: 72100; 81025; 96372; 99284; J1885; J2270

== ENCOUNTER 2019-09-26 12:32 | Emergency (ER) | payer OTHER ==
[~2019-09-26] VITALS: Ht 165.1 cm; Wt 117.9 kg
--- NOTE | 2019-09-26 12:36 | NUR ---
Patient ambulated to bed 7.
[2019-09-26 12:42] VITALS: BP 117/70
--- NOTE | 2019-09-26 12:45 | NUR ---
PT PRESENTS TO THE ER FOR WOUND CHECK. 3 DAYS AGO, PT HAD ABSCESS RIGHT GLUTEAL I&D AT [facility] WITH 4X4 GAUZE IN PLACE; CURRENTLY ON CLINDAMYCIN, BACTRIM, AND KEFLEX. ONE SMALL I&D WOUND ON LOWER INNER QUAD OF THE LEFT BREAST WITH GAUZE COVERED W/O ACTIVE DRAINAGE NOTICED. PT ALSO C/O FEVER OF 100.3 LAST NIGHT, PAIN WORSENING. AFEBRILE AT THIS TIME. PATIENT STATES PAIN OF 10/10 AT THIS TIME; VSS; PATIENT POSITIONED FOR COMFORT; HOB ELEVATED; BEDRAILS UP X1; BED DOWN. ER MD MADE AWARE OF PT STATUS.
[2019-09-26 13:21] VITALS: BP 115/65
--- NOTE | 2019-09-26 13:21 | NUR ---
Patient discharged with v/s stable. Written and verbal after care instructions given and explained. Patient alert, oriented and verbalized understanding of instructions. Ambulatory with steady gait. All questions addressed prior to discharge. ID band removed. Patient advised to follow up with PMD. Rx of [place] given. Patient educated on indication of medication including possible reaction and side effects. Opportunity to ask questions provided and answered.
== END 2019-09-26 13:21 | disposition home or self-care (01) ==
LOC: MED 12:32
DX: L02.31 Cutaneous abscess of buttock (principal); L08.9 Local infection of the skin and subcutaneous tissue, unspecified; Z98.890 Other specified postprocedural states; Z79.899 Other long term (current) drug therapy
CPT/HCPCS: 99284

== ENCOUNTER 2019-11-30 06:44 | Emergency (ER) | payer OTHER ==
[~2019-11-30] VITALS: Ht 165.1 cm; Wt 119.3 kg
[2019-11-30 06:46] VITALS: BP 128/79
--- NOTE | 2019-11-30 06:50 | NUR ---
PT AMBULATED TO BED 11 WITH STEADY GAIT.
--- NOTE | 2019-11-30 06:56 | NUR ---
34 y/o female presented to ED c/o vomitting , diarrhea and headache x 5 days. Pt states she has not been able to hold anything down since Friday. Pt denies abd pain and dysuria. Pt states her 10/10 pain is on the right side of her head and her lower back. Pt abd round , soft and nontender upon palpation. Normoactive bowel sounds. Pt states she took aleve at 0300 w/ no relief of pain. Pt resting in bed, locked and in lowest position, hob elevated, side rail x1. Vss. pmh: denies nka
--- NOTE | 2019-11-30 07:01 | NUR ---
ERMD AT BEDSIDE FOR MEDICAL EVALUATION.
--- NOTE | 2019-11-30 07:03 | NUR ---
REPORT GIVEN TO ASA DE FOR TRANSFER OF CARE.
--- NOTE | 2019-11-30 07:05 | NUR ---
OBTAINED REPORT FROM MJ BRAY FOR CONTINUITY OF CARE
[2019-11-30] MEDS ORDERED: DIPHENOXYLATE /ATROPINE 2.5 MG TAB PO ONE (07:10)
[2019-11-30] MEDS ORDERED: KETOROLAC 30 MG/ML VIAL IVP ONE (07:10)
[2019-11-30] MEDS ORDERED: ONDANSETRON 4 MG/2 ML VIAL IVP ONE (07:10)
[2019-11-30] MEDS ORDERED: NACL 0.9% 1,000 ML IV ONE (07:10)
[2019-11-30 07:31] LABS: BASOPHILS # (AUTO) 0.1 K/uL (0.00-0.22); BASOPHILS % (AUTO) 0.8 % (0.0-2.0); EOSINOPHILS # (AUTO) 0.1 K/uL (0-0.4); EOSINOPHILS % (AUTO) 1.3 % (0.0-4.0); HEMATOCRIT 39.8 % (36-48); HEMOGLOBIN 13.6 g/dL (12.0-16.0); LYMPHOCYTES # (AUTO) 2.7 K/uL (2.5-16.5); LYMPHOCYTES % (AUTO) 31.8 % (20.5-51.1); MEAN CORPUSCULAR HEMOGLOBIN 30 pg (27-31); MEAN CORPUSCULAR HGB CONC 34 g/dL (33-37); MEAN CORPUSCULAR VOLUME 87.4 fL (80-94); MONOCYTES # (AUTO) 0.3 K/uL (0.8-1.0); MONOCYTES % (AUTO) 4.1 % (1.7-9.3); NEUTROPHILS # (AUTO) 5.3 K/uL (1.8-7.7); PLATELET COUNT (AUTO) 406 K/uL (140-450); RED BLOOD CELL COUNT(AUTO) 4.56 MIL/uL (4.20-5.40); RED CELL DISTRIBUTION WIDTH 13.5 % (11.6-13.7); WHITE BLOOD COUNT (AUTO) 8.5 K/uL (4.8-10.8)
--- NOTE | 2019-11-30 07:35 | NUR ---
PT RESTING IN BED, SIDE RAIL X1
[2019-11-30 07:41] LABS: ALBUMIN 3.9 g/dL (3.4-5.0); ANION GAP 14.6 (8-16); CARBON DIOXIDE 21.4 mmol/L (21-32); CREATININE 0.7 mg/dL (0.6-1.3); TOTAL BILIRUBIN 0.4 mg/dL (0.0-1.0)
--- NOTE | 2019-11-30 07:49 | NUR ---
ERMD AT BEDSIDE
[2019-11-30] MEDS ORDERED: MORPHINE SULFATE 2 MG/ML SYR IVP ONE (07:55)
[2019-11-30 08:29] VITALS: BP 126/75
--- NOTE | 2019-11-30 08:29 | NUR ---
Patient discharged with v/s stable. Written and verbal after care instructions given and explained. Patient alert, oriented and verbalized understanding of instructions. Ambulatory with steady gait. All questions addressed prior to discharge. ID band removed. Patient advised to follow up with PMD. Rx of ZOFRAN,LOMOTIL,NORCO given. Patient educated on indication of medication including possible reaction and side effects. Opportunity to ask questions provided and answered.
== END 2019-11-30 08:29 | disposition home or self-care (01) ==
LOC: MED 06:44
DX: R11.2 Nausea with vomiting, unspecified (principal); M79.10 Myalgia, unspecified site; R51 Headache; R19.7 Diarrhea, unspecified; M54.9 Dorsalgia, unspecified; Z90.49 Acquired absence of other specified parts of digestive tract; Z98.890 Other specified postprocedural states; Z79.899 Other long term (current) drug therapy
CPT/HCPCS: 36415; 80053; 81002; 81025; 83690; 85025; 93005; 96361; 96374; 96375; 99284; J1885; J2270; J2405; J7030

== ENCOUNTER 2020-03-07 05:44 | Emergency (ER) | payer OTHER ==
[~2020-03-07] VITALS: Ht 165.1 cm; Wt 109.8 kg
[2020-03-07 05:50] VITALS: BP 110/55
[2020-03-07 05:56] VITALS: BP 131/73
--- NOTE | 2020-03-07 06:06 | NUR ---
PATIENT PRESENTS TO ED WITH CHEST PAIN IN THE MIDDLE OF CHEST THAT RADIATES TO BACK AND LEFT ARM X3D. PT DENIES ANY INJURY. DENIES N/V/D; SKIN IS PINK/WARM/DRY; AAOX4 WITH EVEN AND STEADY GAIT; LUNGS CLEAR BL; HR EVEN AND REGULAR; PT DENIES ANY FEVER, CP, SOB, OR COUGH AT THIS TIME; PATIENT STATES PAIN OF 8/10 AT THIS TIME; VSS; PATIENT POSITIONED FOR COMFORT; HOB ELEVATED; BEDRAILS UP X2; BED DOWN. ER MD MADE AWARE OF PT STATUS.
[2020-03-07] MEDS ORDERED: MORPHINE SULFATE 2 MG/ML SYR IM ONE (06:20)
--- NOTE | 2020-03-07 06:23 | NUR ---
PT TAKEN TO RAD VIA W/C
--- NOTE | 2020-03-07 06:27 | NUR ---
PT BACK FROM RAD VIA W/C.
--- NOTE | 2020-03-07 06:50 | NUR ---
PT IN STABLE CONDITION. PT STATED PAIN CONTINUED.
[2020-03-07 07:25] VITALS: BP 131/73
--- NOTE | 2020-03-07 07:27 | NUR ---
Patient discharged with v/s stable. Written and verbal after care instructions given and explained. Patient alert, oriented and verbalized understanding of instructions. Ambulatory with steady gait. All questions addressed prior to discharge. ID band removed. Patient advised to follow up with PMD. Rx of norco and robaxin given. Patient educated on indication of medication including possible reaction and side effects. Opportunity to ask questions provided and answered.
== END 2020-03-07 07:27 | disposition home or self-care (01) ==
LOC: MED 05:44
DX: R07.9 Chest pain, unspecified (principal); M54.9 Dorsalgia, unspecified; Z79.899 Other long term (current) drug therapy
CPT/HCPCS: 71045; 93005; 96372; 99283; J2270

== ENCOUNTER 2021-03-06 18:35 | Emergency (ER) | payer OTHER ==
[~2021-03-06] VITALS: Ht 165.1 cm; Wt 114.3 kg
[2021-03-06 19:07] VITALS: BP 139/81
[2021-03-06 19:35] LABS: BASOPHILS # (AUTO) 0.1 K/uL (0.00-0.22); BASOPHILS % (AUTO) 0.7 % (0.0-2.0); EOSINOPHILS # (AUTO) 0.2 K/uL (0-0.4); EOSINOPHILS % (AUTO) 1.4 % (0.0-4.0); HEMATOCRIT 38.9 % (36-48); HEMOGLOBIN 13.2 g/dL (12.0-16.0); LYMPHOCYTES # (AUTO) 4.6 K/uL (2.5-16.5); LYMPHOCYTES % (AUTO) 38.7 % (20.5-51.1); MEAN CORPUSCULAR HEMOGLOBIN 30 pg (27-31); MEAN CORPUSCULAR HGB CONC 34 g/dL (33-37); MEAN CORPUSCULAR VOLUME 87.5 fL (80-94); MONOCYTES # (AUTO) 0.6 K/uL (0.8-1.0); MONOCYTES % (AUTO) 4.8 % (1.7-9.3); NEUTROPHILS # (AUTO) 6.5 K/uL (1.8-7.7); NEUTROPHILS % (AUTO) 54.4 % (42.2-75.2); PLATELET COUNT (AUTO) 445 K/uL (140-450); RED BLOOD CELL COUNT(AUTO) 4.45 MIL/uL (4.20-5.40); RED CELL DISTRIBUTION WIDTH 13.5 % (11.6-13.7)
[2021-03-06 19:51] LABS: ALBUMIN 3.7 g/dL (3.4-5.0); ANION GAP 12.6 (8-16); CARBON DIOXIDE 26.2 mmol/L (21-32); CREATININE 0.8 mg/dL (0.6-1.3); POTASSIUM 3.8 mmol/L (3.5-5.1); TOTAL BILIRUBIN 0.2 mg/dL (0.0-1.0)
--- NOTE | 2021-03-06 20:05 | NUR ---
PT AMBULATED TO BED #10
--- NOTE | 2021-03-06 20:07 | NUR ---
RECEIVED INBED 10 WITH C/O RIGHT SIDED CP X 2 DAYS. RESPIRATIONS ARE REGULAR AND UNLABORED. SKIN IS WARM AND DRY
--- NOTE | 2021-03-06 20:20 | NUR ---
DR. QUINTANILLA AT BEDSIDE FOR EVALUATION
[2021-03-06] MEDS ORDERED: KETOROLAC 30 MG/ML VIAL IM ONE (20:45)
--- NOTE | 2021-03-06 21:10 | NUR ---
STATES PAIN SHOT DID NOT WORK. PT REQUESTING STRONGER PAIN MED.
[2021-03-06] MEDS ORDERED: HYDROcodone/APAP 5/325 MG 1 TAB TAB PO ONE (21:20)
[2021-03-06 21:30] VITALS: BP 139/81
--- NOTE | 2021-03-06 21:30 | NUR ---
Patient discharged with v/s stable. Written and verbal after care instructions given and explained. Patient verbalized understanding. Ambulatory with steady gait. All questions addressed prior to discharge. Advised to follow up with PMD.
== END 2021-03-06 21:30 | disposition home or self-care (01) ==
LOC: MED 18:35
DX: R07.9 Chest pain, unspecified (principal); R06.02 Shortness of breath
CPT/HCPCS: 36415; 71045; 80053; 83880; 84484; 85025; 93005; 96372; 99285; J1885

== ENCOUNTER 2023-02-18 15:11 | Emergency (ER) | payer OTHER ==
[~2023-02-18] VITALS: Ht 165.1 cm; Wt 109.8 kg
[~2023-02-18 15:11] MED LIST changes: +TRAM-748 PO; -TRAM50TA1 PO
[2023-02-18 15:41] VITALS: BP 127/81; PULSE 90; RESP 18; TEMP 99.1; O2SAT 98
[2023-02-18] MEDS ORDERED: KETOROLAC 30 MG/ML VIAL IM ONE (15:45)
[2023-02-18] MEDS ORDERED: ACET-10509 PO (15:49)
[2023-02-18] MEDS ORDERED: DICL100G32 TP (15:49)
[2023-02-18] MEDS ORDERED: LID5T TP (15:49)
[2023-02-18 16:55] VITALS: BP 122/81; PULSE 89; RESP 18; TEMP 98; O2SAT 99
== END 2023-02-18 16:55 | disposition home or self-care (01) ==
LOC: MED 15:11
DX: G89.29 Other chronic pain (principal); M25.531 Pain in right wrist; M25.532 Pain in left wrist; Z79.899 Other long term (current) drug therapy
CPT/HCPCS: 96372; 99283; J1885